=== PATIENT | female | born 1950 | race Asian ===

== ENCOUNTER 2016-03-02 20:09 | Emergency (ER) | payer BC, OTHER ==
[~2016-03-02] VITALS: Ht 157.5 cm; Wt 68.0 kg
--- NOTE | ~2016-03-02 | EKG ---
[address] [address] ELECTROCARDIOGRAM REPORT Name: DION ANDERSON Room #: DEP LOC Gonzalez#: [id number] Admission: 03/02/16 Attend Phys: Discharge: 03/02/16 Date of : 46 Report #: [id number] THIS REPORT FOR: //name// [facility] ED Test Date: 2016-03-02 Test Time: 20:43:19 Pat Name: DION ANDERSON Department: Room: Gender: F [employer]: KELI : 1950 Requested By: García Root Order Number: [id number] MD: Barak Jefferson Measurements Intervals [place] Rate: 97 P: 36 PA: 184 QRS: 14 QRSD: 87 T: 23 QT: 376 QTc: 478 Interpretive Statements Sinus rhythm No previous ECG available for comparison Electronically Signed On 03-03-2016 9:01:33 [employer]OR [employer] by Barak Jefferson [email or web address] <ELECTRONICALLY SIGNED> By: Barak Jefferson MD 03/03/16 0901 2043 42 Barak Jefferson MD /IVANNA
[2016-03-02] MEDS ORDERED: COZAAR 25 MG TA25 M1 PO (20:45)
[2016-03-02] MEDS ORDERED: ZOFRAN ODT4 MG DISSOLVE (21:06)
[2016-03-02 21:47] LABS: ABSOLUTE NEUTROPHILS 8.6 thou/uL (1.4-8.2); BASOPHILS 0.4 % (0.0-2.0); EOSINOPHILS 0.2 % (0.0-3.0); HEMATOCRIT 35.3 % (37.0-47.0); HEMOGLOBIN 12.3 gm/dL (12.0-15.0); LYMPHOCYTES 7.8 % (24.0-44.0); MCH 32.1 pg (26.0-34.0); MCHC 34.9 % (28.0-37.0); MONOCYTES 3.2 % (1.0-8.0); PLATELET COUNT 207 thou/uL (150-400); POLYS 88.4 % (36.0-66.0); RBC 3.84 mil/uL (4.20-5.00); WBC 9.7 thou/uL (4.0-11.0)
[2016-03-02 21:50] LABS: MANUAL DIFF NO
[2016-03-02 21:59] LABS: ANION GAP 12 mmol/L (7-16); BUN 16 mg/dL (7-18); CALCIUM 7.8 mg/dL (8.5-10.1); CHLORIDE 107 mmol/L (98-107); CO2 25 mmol/L (21-32); CREATININE 0.9 mg/dL (0.6-1.3); GLUCOSE 166 mg/dL (70-99); POTASSIUM 3.7 mmol/L (3.5-5.1); SODIUM 144 mmol/L (136-145)
[2016-03-02 22:08] LABS: ALBUMIN 3.5 g/dL (3.4-5.0); ALKALINE PHOSPHATASE 79 U/L (46-116); SGOT 42 U/L (15-37); SGPT 67 U/L (30-65); TOTAL BILIRUBIN 0.5 mg/dL (<0.1-1.0); TOTAL PROTEIN 6.7 g/dL (6.4-8.2); TROPONIN-I < 0.04 ng/mL (<0.04-0.07)
[2016-03-02 22:29] VITALS: BP 158/107
== END 2016-03-02 22:32 | disposition home or self-care (01) ==
LOC: ER 20:09
PROVIDERS: Emergency Medicine
DX: R11.2 Nausea with vomiting, unspecified (principal); R19.7 Diarrhea, unspecified; I10 Essential (primary) hypertension; E11.9 Type 2 diabetes mellitus without complications